=== PATIENT | male | born 1945 | race Caucasian/White ===

== ENCOUNTER 2018-04-05 09:46 | Emergency (ER) | payer MEDICARE, BC ==
--- NOTE | 2018-04-05 10:29 | EDM.PDOC ---
ED HPI GENERAL MEDICAL PROBLEM - General Chief Complaint: Lower Extremity Injury/Pain Stated Complaint: TORE RIGHT HAM STRING Time Seen by Provider: 04/05/18 10:05 Source of Information: Reports: Patient, Family History Limitations: Reports: No Limitations - History of Present Illness INITIAL COMMENTS - FREE TEXT/NARRATIVE: 73-year-old male slipped on the ice this morning feeling a pop in his upper right posterior leg. He now has significant pain especially with movement and weightbearing. No edema or bruising at this point. No other injury. He is on Coumadin for atrial fibrillation. He is due for an INR check today. Onset: Sudden Duration: Hour(s): (Within the last few hours) Location: Reports: Lower Extremity, Right Quality: Reports: Sharp Severity: Moderate Worsens with: Reports: Other (Walking or weightbearing), Movement Associated Symptoms: Reports: No Other Symptoms - Related Data Allergies Allergy/AdvReac Type Severity Reaction Status Date / Time lisinopril AdvReac Cough Verified 04/05/18 10:05 enviromental Allergy Other Uncoded 04/05/18 10:05 Home Meds: Home Meds Albuterol Sulfate [Ventolin Hfa] 2 puff INH Q4H PRN 05/30/17 [History] Ca/D3/Mag#11/Zinc/Lug Breaker And Wire Puller/Cody/Bor [Caltrate 600+D Plus Tablet] 1 tab PO DAILY 05/30 [History] Chondroitin/Glucosamine [Glucosamine-Chondroitin] 2 cap PO DAILY 05/30/17 [ History] Flecainide [Tambocor] 25 mg PO BID PRN 05/30/17 [History] Fluticasone Propionate [Flonase] 2 spray INH DAILY 05/30/17 [History] Fluticasone/Salmeterol [Advair 100-50] 1 puff INH DAILY 05/30/17 [History] Loratadine [Claritin] 10 mg PO DAILY 05/30/17 [History] Losartan Potassium 25 mg PO BID 05/30/17 [History] Canmer [place] Extract 500 mg PO DAILY 05/30/17 [History] Rangely-3 Fatty Acids [Rangely-3] 1 cap PO DAILY 05/30/17 [History] Pravastatin Sodium 20 mg PO DAILY 05/30/17 [History] Trolamine Salicylate [Pain Relieving] 1 strip TOP BID PRN 05/30/17 [History] Metoprolol Succinate [Toprol XL] 1 tab PO DAILY 04/05/18 [History] Warfarin [Coumadin] 8 mg PO DAILY 04/05/18 [History] Past Medical History HEENT History: Reports: Cataract, Impaired Vision, Other (See Below) Other HEENT History: 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, Cardiovascular History: Reports: Afib, High Cholesterol, Pacemaker Respiratory History: Reports: Asthma Genitourinary History: Reports: BPH Musculoskeletal History: Reports: Arthritis, Other (See Below) Other Musculoskeletal History: right leg pain greater trochanteric bursitis gets steroid shots - Infectious Disease History Infectious Disease History: Reports: Chicken Pox, Measles, Mumps - Past Surgical History HEENT Surgical History: Reports: Other (See Below) Other HEENT Surgeries/Procedures: sinus surgeries, ethmoidectomy Cardiovascular Surgical History: Reports: Pacer GI Surgical History: Reports: Colonoscopy Social & Family History - Family History Family Medical History: Noncontributory - Caffeine Use Caffeine Use: Reports: Coffee Other Caffeine Use: 4 cups coffee in am Review of Systems - Review of Systems Review Of Systems: See Below Constitutional: Denies: Fever Respiratory: Denies: Shortness of Breath GI/Abdominal: Denies: Nausea, Vomiting Musculoskeletal: Reports: Leg Pain Skin: Denies: Bruising Neurological: Denies: Paresthesia ED EXAM, GENERAL - Physical Exam Exam: See Below Exam Limited By: No Limitations General Appearance: Alert, No Apparent Distress (Patient is uncomfortable but not in any distress) Respiratory/Chest: No Respiratory Distress Extremities: Other (The right posterior upper leg is very tender over the proximal hamstrings. There is no swelling or bruising. He has increased pain with flexion of the right knee against resistance or extension of the hip.) Neurological: Alert, Oriented Psychiatric: Normal Affect, Normal Mood Skin Exam: Warm, Dry Course - Vital Signs Last Recorded V/S: Last Vital Signs Temp 97.3 F 04/05/18 10:29 Pulse 59 L 04/05/18 10:29 Resp 16 04/05/18 10:29 BP 138/76 04/05/18 10:29 Pulse Ox 96 04/05/18 10:29 - Orders/Labs/Meds Orders: Active Orders 24 hr Category Date Time Status DME for Discharge [COMM] Stat Oth 04/05/18 10:15 Ordered Labs: Laboratory Tests 04/05/18 Range/Units 10:25 PT 22.6 H (9.5-12.0) sec INR 2.15 H (0.80-1.20) - Re-Assessments/Exams Free Text/Narrative Re-Assessment/Exam: 04/05/18 10:19 Six-inch Jaylen wrap was applied that the thigh for support and crutches were fitted. He'll be supplied with 6 hydrocodone for extra pain control, encouraged to wear the Jaylen wrap to reduce swelling and ice to the area would be beneficial as well. He is requesting a recheck from orthopedics, we'll set him up to be seen next Sunday. 04/05/18 10:54 INR was 2.15. He will contact the Coumadin clinic for further instructions. Recheck with orthopedics next Sunday scheduled for 9:15 AM. Departure - Departure Time of Disposition: 11:03 Disposition: Home, Self-Care 01 Clinical Impression: Hamstring injury Qualifiers: Encounter type: initial encounter Laterality: right Qualified Code(s): S76.301A - Unspecified injury of muscle, fascia and tendon of the posterior muscle group at thigh level, right thigh, initial encounter - Discharge Information Instructions: Muscle Strain, [id number] Referrals: Miles Cook MD [Primary Care Provider] - Forms: ED Department Discharge Care Plan Goals: Jaylen wrap leg for support, use crutches to help with ambulation. Tylenol for pain and add stronger pain medication sparingly if needed. Recheck with Dr. Moreno on Sunday at 9:15 AM - My Orders Last 24 Hours: My Active Orders 04/05/18 10:15 DME for Discharge [COMM] Stat - Assessment/Plan Last 24 Hours: My Active Orders 04/05/18 10:15 DME for Discharge [COMM] Stat
== END 2018-04-05 11:02 | disposition home or self-care (01) ==
LOC: JP.ED 09:46
DX: S76.301A Unspecified injury of muscle, fascia and tendon of the posterior muscle group at thigh level, right thigh, initial encounter (principal); I48.91 Unspecified atrial fibrillation; E78.00 Pure hypercholesterolemia, unspecified; Z95.0 Presence of cardiac pacemaker; J45.909 Unspecified asthma, uncomplicated; Z88.8 Allergy status to other drugs, medicaments and biological substances; Z79.899 Other long term (current) drug therapy; W00.0XXA Fall on same level due to ice and snow, initial encounter
CPT/HCPCS: 36415; 85610; 99283; 99284

== ENCOUNTER 2023-09-05 18:00 | Emergency (ER) | payer MEDICARE, BC | END 2023-09-05 18:45 | disposition home or self-care (01) | LOC: JP.ED 18:00 | DX: L08.9 Local infection of the skin and subcutaneous tissue, unspecified (principal); E78.00 Pure hypercholesterolemia, unspecified; I48.91 Unspecified atrial fibrillation; Z79.01 Long term (current) use of anticoagulants; Z79.899 Other long term (current) drug therapy; Z88.8 Allergy status to other drugs, medicaments and biological substances; Z91.09 Other allergy status, other than to drugs and biological substances | CPT/HCPCS: 10060; 87070; 87077; 87205; 99283-25 ==